=== PATIENT | female | born 1955 | race Two or more races ===

== ENCOUNTER 2022-06-20 04:54 | Emergency (ER) | payer SELFPAY ==
[~2022-06-20] VITALS: Ht 160 cm; Wt 53.0 kg
[2022-06-20 06:03] LABS: Basophils # (auto) 0.1 10 ^3/uL (0-0.2); Basophils % (auto) 0.7 % (0.0-2.0); Eosinophils # (auto) 1.3 10 ^3/uL (0-0.8); Eosinophils % (auto) 9.4 % (0.0-7.0); Hematocrit 42.4 % (36.0-46.0); Hemoglobin 14.7 g/dL (12.2-16.2); Lymphocytes % (auto) 43.4 % (10.0-50.0); Mean Corpuscular Hemoglobin 29.2 pg (28.0-32.0); Mean Corpuscular Hgb Conc. 34.7 g/dL (32.0-36.0); Mean Corpuscular Volume 84.4 fL (80.0-100.0); Monocytes # (auto) 0.8 10 ^3/uL (0-1.3); Monocytes % (auto) 5.6 % (0.0-12.0); Neutrophils # (auto) 5.6 10 ^3/uL (1.6-8.6); Neutrophils % (auto) 40.9 % (37.0-80.0); Nucleated Red Blood Cells % 0.2 %; Red Blood Cells 5.03 10^6/uL (4.0-5.20); Red Cell Distribution Width 13.6 % (11.8-14.3); White Blood Cell 13.8 10^3/uL (4.4-10.8)
[2022-06-20 06:19] LABS: Albumin 4.1 g/dL (3.4-5.0); Calcium 8.9 mg/dL (8.5-10.1); Potassium 3.9 mmol/L (3.5-5.1)
[2022-06-20 06:23] LABS: Bilirubin, Total 0.2 mg/dL (0.2-1.0); Total Protein 8.1 g/dL (6.4-8.2)
[2022-06-20] MEDS ORDERED: IOHEXOL 350 MG/ML 100ML IJ ONE (07:14)
[2022-06-20] MEDS ORDERED: cloNIDine HCL 0.1 MG TAB PO ONE (07:15)
[2022-06-20 08:03] LABS: Urine Bacteria NONE SEEN /hpf (None Seen); Urine Blood Negative /uL (Negative); Urine Mucus FEW (None Seen); Urine Specific Gravity 1.012 (1.001-1.035); Urine WBC 1 /hpf (0 - 5)
[2022-06-20 09:23] VITALS: BP 99/64
[2022-06-20] MEDS ORDERED: PHEN95TA10 PO (09:47)
[2022-06-20] MEDS ORDERED: CEPH-510 PO (09:47)
[2022-06-20] MEDS ORDERED: BENZ100C19 PO (10:28)
[2022-06-20] MEDS ORDERED: DEX4T PO (10:29)
== END 2022-06-20 10:26 | disposition admitted as inpatient to this hospital (09) ==
LOC: ER 04:54
DX: I10 Essential (primary) hypertension (principal); N39.0 Urinary tract infection, site not specified
CPT/HCPCS: 36415; 70450; 71045; 71275; 80053; 81001; 84484; 85025; 93005; 99285; Q9967